=== PATIENT | male | born 1935 | race Caucasian/White ===

== ENCOUNTER 2020-02-03 14:12 | Emergency (ER) | payer MEDICARE ==
[~2020-02-03] VITALS: Ht 177.8 cm; Wt 97.0 kg
[2020-02-03 14:39] LABS: BASO % 0 % (0-3); EOS # 0.1 x10^3/uL (0.0-0.7); EOS % 2 % (0-3); HEMATOCRIT 36.1 % (39.0-53.0); HEMOGLOBIN 12.2 g/dL (13.0-17.5); LYMPH % 13 % (24-48); MEAN CORPUSCULAR HEMOGLOBIN 33 pg (25-35); MEAN CORPUSCULAR HGB CONC 34 g/dL (31-37); MEAN CORPUSCULAR VOLUME 97 fL (79-100); MONO # 0.8 x10^3/uL (0.0-1.1); MONO % 11 % (0-9); NEUT # 5.6 x10^3/uL (1.8-7.7); NEUT % 74 % (31-73); PLATELET COUNT 265 x10^3/uL (140-400); RED BLOOD COUNT 3.73 x10^6/uL (4.30-5.70); RED CELL DISTRIBUTION WIDTH 18.3 % (11.5-14.5); WHITE BLOOD COUNT 7.6 x10^3/uL (4.0-11.0)
--- NOTE | 2020-02-03 14:43 | EKG ---
[facility] [address] [place] [address] Test Date: 2020-02-03 Test Time: 14:23:38 Pat Name: PHOEBE FORRESTER Department: Room: Gender: M Science Professor: : 1935 Requested By: KIMBERLEY BRADLEY Order Number: [id number] Reading MD: Darwin Easley Measurements Intervals [place] Rate: 97 P: 35 OK: 130 QRS: -24 QRSD: 132 T: 162 QT: 396 QTc: 508 Interpretive Statements SINUS RHYTHM LEFT ATRIAL ABNORMALITY LEFTWARD AXIS LEFT BUNDLE BRANCH BLOCK ABNORMAL ECG RI6.02 No previous ECG available for comparison Electronically Signed On 02-04-2020 8:42:20 CDT by Darwin Easley
[2020-02-03 14:53] LABS: CALCIUM 8.7 mg/dL (8.5-10.1); CREATININE 1.1 mg/dL (0.7-1.3); GFR 63.8; POTASSIUM 3.8 mmol/L (3.5-5.1)
--- NOTE | 2020-02-03 14:58 | RAD ---
CHEST AP ONLY Clinical indications: Shortness of air. Comparison: None available. Findings: Bilateral interstitial and nodular lung infiltrates are seen which most likely represents pulmonary edema. Small bilateral pleural effusions are seen. No pneumothorax is evident. Pacemaker and sternotomy are evident. Heart size is mildly enlarged. Pulmonary vascular congestion is seen. Upper mediastinum is unremarkable. IMPRESSION: Mild to moderate CHF. Electronically signed by: Davy Jacobo MD (02/03/2020 2:55 PM) [facility] [place]
[2020-02-03 14:59] LABS: ALBUMIN/GLOBULIN RATIO 0.8 (1.0-1.7); C-REACTIVE PROTEIN 18.3 mg/L (0-3.3); TOTAL BILIRUBIN 0.6 mg/dL (0.2-1.0); TOTAL PROTEIN 6.7 g/dL (6.4-8.2)
[2020-02-03 15:05] LABS: BASE EXCESS ABG 1 mmol/L (-3-3); HCO3 ABG 25 mmol/L (21-28); PCO2 ABG 38 mmHg (35-46); PO2 ABG 89 mmHg (65-108); SAT O2 ABG 96 % (92-99)
[2020-02-03 15:06] LABS: FIO2 ABG 32
[2020-02-03] MEDS ORDERED: FUROSEMIDE 20 MG/2 ML VIAL. IVP ONE (15:45)
[2020-02-03] MEDS ORDERED: CLINDAMYCIN 600MG PREMIX 50 ML IV ONE (16:15)
--- NOTE | 2020-02-03 16:29 | PHYS DOC ---
Past Medical History Past Medical History: Other Additional Past Medical Histor: CHF, DEFIB/PACE MAKER (KIMBERLEY MONTESINOS DO) Smoking Status: Current Every Day Smoker Alcohol Use: None (KIMBERLEY MONTESINOS DO) Adult General Chief Complaint Chief Complaint: SHORTNESS OF BREATH HPI HPI Patient is a 84 year old man with history of congestive heart failure presents with increased leg swelling and shortness of breath over the past several days. Reports rash to lower legs. Patient wears 3 L of oxygen at baseline is unable to walk greater than 50 feet due to shortness of breath. Patient noted to have an O2 saturation of 87% on oxygen on EMS arrival. Reports loose cough. Denies chest pain, fever, cough, sore throat. No nausea or vomiting. No abdominal pain. No other acute symptoms or complaints. [] (KIMBERLEY MONTESINOS DO) Review of Systems Review of Systems Review of systems as per HPI. All other review of symptoms are negative. All other systems were reviewed and found to be within normal limits, except as documented in this note. (KIMBERLEY MONTESINOS DO) Current Medications Current Medications Current Medications Medications (Trade) Dose Ordered Sig/Laura Start Time Stop Time Status Last Admin Dose Admin Clindamycin Phosphate 50 ml @ 100 mls/hr 1X ONCE 02/03/20 16:15 02/03/20 16:44 DC 02/03/20 16:33 100 MLS/HR Furosemide (Lasix) 20 mg 1X ONCE 02/03/20 15:45 02/03/20 15:46 DC 02/03/20 16:34 20 MG (ELADIO BUSTILLOS DO) Allergies Allergies Allergies Coded Allergies Type Severity Reaction Last Updated Verified No Known Drug Allergies 02/03/20 No (ELADIO BUSTILLOS DO) Physical Exam Physical Exam Constitutional: Well developed, well nourished, no acute distress, non-toxic appearance. [] HENT: Normocephalic, atraumatic, bilateral external ears normal, oropharynx moist, no oral exudates, nose normal. [] Eyes: PERRLA, EOMI, conjunctiva normal, no discharge. [] Neck: Normal range of motion, no tenderness, supple, no stridor. [] Cardiovascular:Heart rate regular rhythm, no murmur [] Lungs & Thorax: Bilateral breath sounds clear to auscultation [] Abdomen: Bowel sounds normal, soft, no tenderness, no masses, no pulsatile masses. [] Skin: Warm, dry, no erythema, no rash. [] Back: No tenderness, no CVA tenderness. [] Extremities: No tenderness, no cyanosis, no clubbing, ROM intact, no edema. [] Neurologic: Alert and oriented X 3, normal motor function, normal sensory function, no focal deficits noted. [] Psychologic: Affect normal, judgement normal, mood normal. [] (KIMBERLEY MONTESINOS DO) Current Patient Data Vital Signs Vital Signs Date Time Temp Pulse Resp B/P (MAP) Pulse Ox O2 Delivery O2 Flow Rate FiO2 02/03/20 22:10 88 20 123/60 (81) 96 Nasal Cannula 3.0 02/03/20 14:30 98.1 98.1 (ELADIO BUSTILLOS DO) Lab Values Laboratory Tests Test 02/03/20 14:25 02/03/20 15:02 White Blood Count 7.6 x10^3/uL (4.0-11.0) Red Blood Count 3.73 x10^6/uL (4.30-5.70) L Hemoglobin 12.2 g/dL (13.0-17.5) L Hematocrit 36.1 % (39.0-53.0) L Mean Corpuscular Volume 97 fL (79-100) Mean Corpuscular Hemoglobin 33 pg (25-35) Mean Corpuscular Hemoglobin Concent 34 g/dL (31-37) Red Cell Distribution Width 18.3 % (11.5-14.5) H Platelet Count 265 x10^3/uL (140-400) Neutrophils (%) (Auto) 74 % (31-73) H Lymphocytes (%) (Auto) 13 % (24-48) L Monocytes (%) (Auto) 11 % (0-9) H Eosinophils (%) (Auto) 2 % (0-3) Basophils (%) (Auto) 0 % (0-3) Neutrophils # (Auto) 5.6 x10^3/uL (1.8-7.7) Lymphocytes # (Auto) 1.0 x10^3/uL (1.0-4.8) Monocytes # (Auto) 0.8 x10^3/uL (0.0-1.1) Eosinophils # (Auto) 0.1 x10^3/uL (0.0-0.7) Basophils # (Auto) 0.0 x10^3/uL (0.0-0.2) Sodium Level 138 mmol/L (136-145) Potassium Level 3.8 mmol/L (3.5-5.1) Chloride Level 100 mmol/L (98-107) Carbon Dioxide Level 36 mmol/L (21-32) H Anion Gap 2 (6-14) L Blood Urea Nitrogen 19 mg/dL (8-26) Creatinine 1.1 mg/dL (0.7-1.3) Estimated GFR (Cockcroft-Gault) 63.8 BUN/Creatinine Ratio 17 (6-20) Glucose Level 194 mg/dL (70-99) H Calcium Level 8.7 mg/dL (8.5-10.1) Total Bilirubin 0.6 mg/dL (0.2-1.0) Aspartate Amino Transferase (AST) 13 U/L (15-37) L Alanine Aminotransferase (ALT) 19 U/L (16-63) Alkaline Phosphatase 101 U/L (46-116) Troponin I Quantitative 0.044 ng/mL (0.000-0.055) C-Reactive Protein, Quantitative 18.3 mg/L (0-3.3) H AV-Lmr-S-Type Natriuretic Peptide 1108 pg/mL (0-449) H Total Protein 6.7 g/dL (6.4-8.2) Albumin 3.0 g/dL (3.4-5.0) L Albumin/Globulin Ratio 0.8 (1.0-1.7) L O2 Saturation 96 % (92-99) Arterial Blood pH 7.44 (7.35-7.45) Arterial Blood pCO2 at Patient Temp 38 mmHg (35-46) Arterial Blood pO2 at Patient Temp 89 mmHg (65-108) Arterial Blood HCO3 25 mmol/L (21-28) Arterial Blood Base Excess 1 mmol/L (-3-3) FiO2 32 Laboratory Tests 02/03/20 14:25 Laboratory Tests 02/03/20 14:25 (ELADIO BUSTILLOS DO) EKG EKG [EKG: Reviewed] (KIMBERLEY MONTESINOS DO) Radiology/Procedures Radiology/Procedures [Chest x-ray: Moderate congestive heart failure per radiology report] (KIMBERLEY MONTESINOS DO) Radiology/Procedures PROCEDURE: CHEST AP ONLY CHEST AP ONLY Clinical indications: Shortness of air. Comparison: None available. Findings: Bilateral interstitial and nodular lung infiltrates are seen which most likely represents pulmonary edema. Small bilateral pleural effusions are seen. No pneumothorax is evident. Pacemaker and sternotomy are evident. Heart size is mildly enlarged. Pulmonary vascular congestion is seen. Upper mediastinum is unremarkable. IMPRESSION: Mild to moderate CHF. Electronically signed by: Davy Jacobo MD (02/03/2020 2:55 PM) [facility] [place] (ELADIO BUSTILLOS DO) Course & Med Decision Making Course & Med Decision Making Pertinent Labs and Imaging studies reviewed. (See chart for details) [IV Lasix, antibiotics given. Recommendations are for hospital admission. Patient declines hospital admission and request transfer to [facility]. Ambulance transfer recommended. Disposition and transportation pending discussion with family members were not present at time of shift change. Care transitioned to Dr. Bustillos for final disposition. (KIMBERLEY MONTESINOS DO) Course & Med Decision Making 1800- Sign out received from Dr. Montesinos regarding patient with CHF exacerbation and lower extremity cellulitis who requires admission. Patient and family requesting admission at . Laboratory and radiological studies reviewed. Discussed case with transfer team. Dr. Jaime Hart accepting. Discussed current findings and plan with patient and family, who acknowledge understanding and agreement. (ELADIO BUSTILLOS DO) Dragon Disclaimer Dragon Disclaimer This electronic medical record was generated, in whole or in part, using a voice recognition dictation system. (KIMBERLEY MONTESINOS DO) Departure Departure Impression: Primary Impression: Congestive heart failure Additional Impression: Bilateral lower leg cellulitis Disposition: 05 TRANSFER OTHER (- Dr. Jaime Hart accepting) Condition: STABLE Referrals: UNKNOWN PCP NAME (PCP) Problem Qualifiers Primary Impression: Congestive heart failure Heart failure type: unspecified Heart failure chronicity: acute on chronic Qualified Codes: I50.9 - Heart failure, unspecified KIMBERLEY MONTESINOS DO February 03, 2020 16:29 ELADIO BUSTILLOS DO February 04, 2020 03:29
[2020-02-03 22:10] VITALS: BP 123/60
--- NOTE | 2020-02-07 09:32 | NUR ---
IP: Pt is COVID negative.
== END 2020-02-03 22:10 | disposition short-term general hospital (02) ==
LOC: ER 14:12
DX: I50.9 Heart failure, unspecified (principal); L03.116 Cellulitis of left lower limb; L03.115 Cellulitis of right lower limb; R21 Rash and other nonspecific skin eruption; F17.200 Nicotine dependence, unspecified, uncomplicated; Z95.810 Presence of automatic (implantable) cardiac defibrillator
CPT/HCPCS: 36415; 36600; 71045; 80053; 82805; 83880; 84484; 85025; 86140; 93005; 96365; 96375; 99285; J1940; J3490; U0003-CS